=== PATIENT | male | born 1985 | race Caucasian/White ===

== ENCOUNTER 2016-08-19 22:29 | Emergency (ER) | payer MEDICAID, OTHER ==
[2016-08-20 00:04] LABS: URINE BILIRUBIN NEGATIVE (NEGATIVE); URINE BLOOD NEGATIVE (NEGATIVE); URINE GLUCOSE (UA) 3+ (NEGATIVE); URINE LEUKOCYTE ESTERASE NEGATIVE (NEGATIVE); URINE NITRITE NEGATIVE (NEGATIVE); URINE PROTEIN 1+ (NEGATIVE); URINE UROBILINOGEN NORMAL (0-1 mg/dl)
[2016-08-20 00:05] LABS: URINE APPEARANCE CLEAR; URINE COLOR YELLOW
[2016-08-20 00:14] LABS: URINE BACTERIA 0; URINE EPITHELIAL CELLS 0-2 /hpf; URINE RBC 0 /hpf; URINE WBC 0-2 /hpf
== END 2016-08-20 00:17 | disposition home or self-care (01) ==
LOC: ED 22:29
DX: E11.65 Type 2 diabetes mellitus with hyperglycemia (principal); Z79.84 Long term (current) use of oral hypoglycemic drugs; Z79.899 Other long term (current) drug therapy; Z79.891 Long term (current) use of opiate analgesic; Z86.14 Personal history of Methicillin resistant Staphylococcus aureus infection